=== PATIENT | male | born 1955 | race American Indian/Alaskan Native ===

== ENCOUNTER 2019-08-09 12:52 | Emergency (ER) | payer OTHER, MEDICARE ==
[2019-08-09 13:00] VITALS: BP 110/65
--- NOTE | 2019-08-09 13:05 | Event Note ---
ED Screening Note Date of service: 08/09/19 Time: 13:05 ED Screening Note: 65 y/o male comes in for tailbone pain. Patient reports that he is taking his antibiotic as prescribed. Not taking any pain medication. This initial assessment/diagnostic orders/clinical plan/treatment(s) is/are subj ect to change based on patients health status, clinical progression and re- assessment by fellow clinical providers in the ED. Further treatment and workup at subsequent clinical providers discretion. Patient/guardian urged not to elope from the ED as their condition may be serious if not clinically assessed and managed. Initial orders include:
[2019-08-09 13:47] LABS: Hematocrit 39.1 % (35.5-45.6); Hemoglobin 13.3 gm/dl (11.8-15.2); Mean Corpuscular HGB Conc 34 % (32-34); Mean Corpuscular Volume 91 fl (84-94); Platelet Count 203 K/mm3 (140-440); Red Blood Count 4.29 M/mm3 (3.65-5.03); Red Cell Distribution Width 14.1 % (13.2-15.2)
[2019-08-09] MEDS ORDERED: ONDANSETRON 4 MG/2 ML INJ IV ONE (14:03)
[2019-08-09] MEDS ORDERED: SODIUM CHLORIDE 0.9% 1000 ML 1,000 ML IV ONE (14:03)
--- NOTE | 2019-08-09 14:04 | Emergency Department Report ---
ED Abdominal Pain HPI - General Chief Complaint: Abdominal Pain Stated Complaint: ABDOMINAL PAIN Time Seen by Provider: 08/09/19 13:02 Source: patient Mode of arrival: Wheelchair Limitations: No Limitations - History of Present Illness Initial Comments: Patient is a 63-year-old -[place] male who comes to the ER today complaining of nausea. He states that he got up this morning and he put Wieden feet down in his yard. He ran out of the waiting feed so he decided to go to with his brothers. On the way to his brothers he stopped at [employer]. Immediately within 20 minutes of eating a Bai he states that he got nauseated. He denies vomiting to me. He states that he had one BM. He has been in the ER for over an hour and has had no nausea vomiting or diarrhea. He has no abdominal tenderness on exam. Patient is on Klonopin for his chronic back pain and neuropathy. He cannot tell me who his PCP is. Associated Symptoms: nausea, diarrhea (1 stool that he denied was diarrhea). denies: vomiting, fever, chills, constipation, dysuria, hematemesis, hematochezia - Related Data Previous Rx's Medication Instructions Recorded Last Taken Type Ondansetron [Zofran Odt] 4 mg PO Q8HR PRN #10 tab.rapdis 08/09/19 Unknown Rx Allergies Allergy/AdvReac Type Severity Reaction Status Date / Time No Known Allergies Allergy Unverified 08/09/19 13:00 ED Review of Systems ROS: Stated complaint: ABDOMINAL PAIN Other details as noted in HPI Comment: All other systems reviewed and negative ED Past Medical Hx - Past Medical History Previous Medical History?: Yes Additional medical history: chronic back pain - Surgical History Past Surgical History?: No - Family History Family history: no significant - Social History Smoking Status: Current Every Day Smoker Substance Use Type: None - Medications Home Medications: Home Medications Medication Instructions Recorded Confirmed Last Taken Type Ondansetron [Zofran Odt] 4 mg PO Q8HR PRN #10 tab.rapdis 08/09/19 Unknown Rx ED Physical Exam - General Limitations: No Limitations General appearance: alert, in no apparent distress - Head Head exam: Present: atraumatic, normocephalic - Eye Eye exam: Present: normal appearance - ENT ENT exam: Present: mucous membranes moist - Neck Neck exam: Present: normal inspection - Respiratory Respiratory exam: Present: normal lung sounds bilaterally. Absent: respiratory distress - Cardiovascular Cardiovascular Exam: Present: regular rate, normal rhythm. Absent: systolic murmur, diastolic murmur, rubs, gallop - GI/Abdominal GI/Abdominal exam: Present: soft, normal bowel sounds - Rectal Rectal exam: Present: deferred - Extremities Exam Extremities exam: Present: normal inspection - Back Exam Back exam: Present: normal inspection - Neurological Exam Neurological exam: Present: alert, oriented X3 - Psychiatric Psychiatric exam: Present: normal affect, normal mood - Skin Skin exam: Present: warm, dry, intact, normal color. Absent: rash ED Course Vital Signs 08/09/19 08/09/19 12:59 13:00 Temperature 98.6 F Pulse Rate 57 L Respiratory 18 Rate Blood Pressure 110/65 O2 Sat by Pulse 96 Oximetry ED Medical Decision Making - Lab Data Result diagrams: 08/09/19 13:13 08/09/19 13:13 - Medical Decision Making Laboratory Results - last 72 hr 08/09/19 08/09/19 13:13 13:13 WBC 3.9 L RBC 4.29 Hgb 13.3 Hct 39.1 MCV 91 MCH 31 MCHC 34 RDW 14.1 Plt Count 203 Lymph % (Auto) Nurse Midwife Seg Neutrophils % Nurse Midwife Sodium 139 Potassium 4.3 Chloride 102.3 Carbon Dioxide 22 Anion Gap 19 BUN 12 Creatinine 0.9 Estimated GFR > 60 BUN/Creatinine Ratio 13 Glucose 132 H Calcium 9.6 Total Bilirubin 0.40 AST 29 ALT 17 Alkaline Phosphatase 55 Total Protein 6.8 Albumin 4.2 Albumin/Globulin Ratio 1.6 Lipase 24 Labs noted. Patient hydrated in the ER. Vital signs stable he is taking p.o. Patient being discharged to home with follow-up with his PCP. Vital Signs 08/09/19 08/09/19 12:59 13:00 Temperature 98.6 F Pulse Rate 57 L Respiratory 18 Rate Blood Pressure 110/65 O2 Sat by Pulse 96 Oximetry - Differential Diagnosis gastroenteritis Critical care attestation.: If time is entered above; I have spent that time in minutes in the direct care of this critically ill patient, excluding procedure time. ED Disposition Clinical Impression: Gastroenteritis Disposition: DC-01 TO HOME OR SELFCARE Is pt being admited?: No Does the pt Need Aspirin: No Condition: Stable Additional Instructions: bland diet stay well hydrated follow up with pcp if problem persists avoid [employer] social distancing good hand washing Referrals: DOT SMITH MD [Staff Physician] - 3-5 Days Time of Disposition: 14:14
[2019-08-09 14:09] LABS: Alanine Aminotransferase 17 units/L (7-56); Albumin 4.2 g/dL (3.9-5); BUN/Creatinine Ratio 13; Blood Urea Nitrogen 12 mg/dL (9-20); Calcium 9.6 mg/dL (8.4-10.2); Hemolysis Index 11
[2019-08-09 15:01] LABS: Basophils % (Manual) 0 % (0.0-1.8); Total Cells Counted 100
[2019-08-09 15:02] LABS: Platelet Estimate Consistent w Auto; RBC Morphology Normal
== END 2019-08-09 15:41 | disposition home or self-care (01) ==
LOC: ED 12:52
DX: K52.9 Noninfective gastroenteritis and colitis, unspecified (principal); F17.200 Nicotine dependence, unspecified, uncomplicated; Z79.899 Other long term (current) drug therapy
CPT/HCPCS: 36415; 80053; 83690; 85007; 85025; 96361; 96374; 99283; J2405; J7030